=== PATIENT | female | born 1995 | race Native Hawaiian/Other Pacific Islander ===

== ENCOUNTER 2021-10-08 12:15 | Emergency (ER) | payer MEDICAID | END 2021-10-08 14:15 | disposition left against medical advice (07) | LOC: JP.ED 12:15 | DX: Z53.21 Procedure and treatment not carried out due to patient leaving prior to being seen by health care provider (principal) ==

== ENCOUNTER 2022-12-14 23:26 | Emergency (ER) | payer MEDICAID ==
[2022-12-14] MEDS ORDERED: LORazepam 1 MG Tab PO ONE (23:38)
[2022-12-14] MEDS ORDERED: Rabies Vaccine (Avian) 2.5 Unit Inj Kit IM ONE (23:38)
[2022-12-14] MEDS ORDERED: Ketorolac 30 MG/ML SDV IM ONE (23:38)
[2022-12-14] MEDS ORDERED: Rabies Immune Globulin/PF (HyperRAB) 300 UNIT/ML 5 ML SDV IM ONE (23:38)
[2022-12-14] MEDS ORDERED: Diphtheria,Pertussis(Acell),Tetanus Vaccine 0.5 ML Syringe IM ONE (23:38)
[2022-12-14] MEDS ORDERED: Doxycycline 100 MG Cap PO ONE (23:43)
[2022-12-14] MEDS ORDERED: Bacitracin Oint 1 GM U/D Packet TOP ONE (23:44)
[2022-12-14] MEDS ORDERED: metroNIDAZOLE 250 MG Tab PO ONE (23:44)
[2022-12-14] MEDS ORDERED: Lidocaine 1% with EPINEPHrine 1:100,000 50 ML MDV SUBCUT ONE (23:44)
[2022-12-15] MEDS ORDERED: Rabies Immune Globulin/PF (HyperRAB) 300 UNIT/ML 1 ML SDV ONE (00:45)
== END 2022-12-15 02:09 | disposition home or self-care (01) ==
LOC: JP.ED 23:26
DX: S81.852A Open bite, left lower leg, initial encounter (principal); S81.851A Open bite, right lower leg, initial encounter; S61.452A Open bite of left hand, initial encounter; S61.451A Open bite of right hand, initial encounter; Z88.8 Allergy status to other drugs, medicaments and biological substances; Z88.0 Allergy status to penicillin; Z23 Encounter for immunization; W54.0XXA Bitten by dog, initial encounter
CPT/HCPCS: 12005; 73090; 90375; 90471; 90675; 90715; 96372; 99283; 99284; A9270; J1885